=== PATIENT | female | born 1980 | race African-American/Black ===

== ENCOUNTER 2018-07-21 11:30 | Outpatient (CLI) | payer BC, MEDICARE ==
--- NOTE | 2018-07-21 12:20 | RAD ---
3 VIEWS RIGHT HAND: Date: 07/21/18 COMPARISON: None. HISTORY: Right hand pain. FINDINGS: 3 views of the right hand show no evidence of acute fracture or dislocation. No degenerative changes are seen. IMPRESSION: Unremarkable exam. POS: [facility]
== END 2018-07-21 11:31 | disposition home or self-care (01) ==
LOC: RAD 11:30
PROVIDERS: ATTEND Family Medicine
DX: M79.641 Pain in right hand (principal)

== ENCOUNTER 2020-04-23 09:57 | Outpatient (CLI) | payer BC, MEDICARE | END 2020-04-23 09:58 | disposition home or self-care (01) | LOC: BICMAMMO 09:57 | PROVIDERS: ATTEND Physician Assistant | DX: R92.2 Inconclusive mammogram (principal); N63.20 Unspecified lump in the left breast, unspecified quadrant | CPT/HCPCS: G0279 ==